=== PATIENT | female | born 1950 | race Caucasian/White ===

== ENCOUNTER 2022-05-30 08:24 | Day surgery (SDC) | payer OTHER, MEDICARE ==
[2022-05-23 12:29] VITALS: BMI 33.2
[2022-05-30 08:46] VITALS: RESP 18
[2022-05-30] MEDS: TROPICAMIDE 1% OPHTH SOLN 15 ML BOTTLE ONE ×3 (09:10→09:20)
[2022-05-30] MEDS: CIPROFLOXACIN 0.3% EYE DROPS 5 ML BOTTLE ONE ×3 (09:10→09:20)
[2022-05-30] MEDS: PHENYLEPHRINE 2.5% OPHTH SOLN 15 ML BOTTLE ONE ×3 (09:10→09:20)
[2022-05-30] MEDS: CYCLOPENTOLATE 2% OPHTH SOLN 2 ML BOTTLE ONE ×3 (09:10→09:20)
[2022-05-30] MEDS ORDERED: MIDAZOLAM HCL 2 MG/2 ML SINGLE DOSE VIAL ONE (10:32)
[2022-05-30 11:21] VITALS: PULSE 80; TEMP 97.8
[2022-05-30 11:36] VITALS: BP 124/71
== END 2022-05-30 12:17 | disposition home or self-care (01) ==
LOC: FASU 08:24
PROVIDERS: ATTEND Ophthalmology
PROC: 08RJ3JZ Replacement of Right Lens with Synthetic Substitute, Percutaneous Approach (ICD-10-PCS; principal; 2022-05-30 10:38)
DX: H26.8 Other specified cataract (principal)
CPT/HCPCS: 66984; V2632; 82962